=== PATIENT | female | born 1980 | race Caucasian/White ===

== ENCOUNTER 2021-08-30 14:01 | Emergency (ER) | payer BC ==
[~2021-08-30] VITALS: Ht 157.5 cm; Wt 90.7 kg
[2021-08-30 14:12] VITALS: BP 123/63
--- NOTE | 2021-08-30 14:21 | NUR ---
DR ANDRADE AT BEDSIDE FOR EVAL
--- NOTE | 2021-08-30 15:18 | NUR ---
VISHAL [phone]
[2021-08-30] MEDS ORDERED: IBUP-1955 PO (16:14)
[2021-08-30] MEDS ORDERED: TDAP [DIPH/PERTUSSIS/TET] 0.5 ML VIAL IM ONE ×2 (16:19→16:30)
--- NOTE | 2021-08-30 16:25 | NUR ---
Patient discharged to home in stable condition. Written and verbal after care instructions given. Patient verbalizes understanding of instruction.
[2021-08-30] MEDS ORDERED: BACITRACIN ZINC OINT PACKET 1 EA PACKET TP ONE (16:30)
== END 2021-08-30 16:39 | disposition home or self-care (01) ==
LOC: ER 14:35
DX: S93.492A Sprain of other ligament of left ankle, initial encounter (principal); F32.A Depression, unspecified; W22.8XXA Striking against or struck by other objects, initial encounter; Y93.89 Activity, other specified; Y92.89 Other specified places as the place of occurrence of the external cause; Y99.8 Other external cause status
CPT/HCPCS: 73610-TC; 73630-TC; 90715